=== PATIENT | male | born 1970 | race Caucasian/White ===

== ENCOUNTER 2020-03-27 18:17 | Emergency (ER) | payer BC ==
[2020-03-27] MEDS ORDERED: Lidocaine 1% 30 ML SDV INJECT ONE (18:36)
--- NOTE | 2020-03-28 14:43 | EDM.PDOC ---
ED HPI GENERAL MEDICAL PROBLEM - General Chief Complaint: Laceration Stated Complaint: LACERATION L HAND Time Seen by Provider: 03/27/20 18:40 Source of Information: Reports: Patient History Limitations: Reports: No Limitations - History of Present Illness INITIAL COMMENTS - FREE TEXT/NARRATIVE: Pt. presents to ER with complaints of laceration to palm of L hand. Pt. states that he cut it with a razor knife. Denies any numbness/tingling distal to area of injury. His tetanus is up to date. Onset: Today Onset Date: 03/28/20 Location: Reports: Upper Extremity, Left Quality: Reports: Sharp Left Hand Pain Score (Numeric/FACES): 3 - Related Data Allergies Allergy/AdvReac Type Severity Reaction Status Date / Time No Known Allergies Allergy Verified 03/27/20 18:36 Social & Family History - Tobacco Use Tobacco Use Status *Q: Never Tobacco User - Recreational Drug Use Recreational Drug Use: No ED ROS GENERAL - Review of Systems Review Of Systems: Comprehensive ROS is negative, except as noted in HPI. ED EXAM, SKIN/RASH Exam: See Below Extremities: Normal Range of Motion, Other (1 cm laceration to palm of L hand. No obvious injury to underlying structures of the hand.) Neurological: Alert, Oriented, CN II-XII Intact, Normal Cognition, Normal Gait, Normal Reflexes, No Motor/Sensory Deficits ED SKIN PROCEDURES - Laceration/Wound Repair Left Ventral Hand Appearance: Subcutaneous Distal NVT: Neuro & Vascular Intact, No Tendon Injury Anesthetic Type: Local Local Anesthesia - Lidocaine (Xylocaine): 1% Plain Local Anesthetic Volume: 2cc Skin Prep: Chlorhexidine (Hibiciens), Saline Saline Irrigation (cc's): 1,000 Exploration/Debridement/Repair: Wound Explored, Explored to Base Closed with: Sutures Lac/Wound length In cm: 1 Suture Size: 4-0 # of Sutures: 2 Suture Type: Nylon Course - Vital Signs Last Recorded V/S: Last Vital Signs Temp 36.8 C 03/27/20 18:35 Pulse 88 03/27/20 18:35 Resp 14 03/27/20 18:35 BP 136/93 H 03/27/20 18:35 Pulse Ox 97 03/27/20 18:35 - Orders/Labs/Meds Meds: Medications Discontinued Medications Generic Name Dose Route Start Last Admin Trade Name Freq PRN Reason Stop Dose Admin Lidocaine HCl 30 ml 03/27/20 18:36 03/27/20 18:46 Xylocaine-Mpf 1% INJECT 03/27/20 18:37 30 ml ONETIME ONE Administration Departure - Departure Time of Disposition: 14:46 Disposition: Home, Self-Care 01 Clinical Impression: Laceration - Discharge Information Instructions: Laceration Care, Adult Referrals: Venkata Francis PA-C [Primary Care Provider] - Forms: ED Department Discharge Additional Instructions: Sutures out in 12 days. This can be done by a nurse in the clinic of your choice. Keep bandaid on/keep dry for 24 hours. Then, keep open to air as much as possible. Off work 03-29-2020 and 03-30-2020 due to injury. Use nitrile gloves if working on greasy materials until sutures are out. Return if there is any redness, swelling, or discharge from the area. Sepsis Event Note (ED) - Evaluation Sepsis Screening Result: No Definite Risk - Problem List Review Problem List Initiated/Reviewed/Updated: Yes - Assessment/Plan Plan: Sutures out in 12 days. This can be done by a nurse in the clinic of your choice. Keep bandaid on/keep dry for 24 hours. Then, keep open to air as much as possible. Off work 03-29-2020 and 03-30-2020 due to injury. Use nitrile gloves if working on greasy materials until sutures are out. Return if there is any redness, swelling, or discharge from the area.
== END 2020-03-27 19:22 | disposition home or self-care (01) ==
LOC: VM.ED 18:17
DX: S61.412A Laceration without foreign body of left hand, initial encounter (principal); W26.0XXA Contact with knife, initial encounter
CPT/HCPCS: 12001; 99282; 99283; J2001